=== PATIENT | female | born 1935 | race Caucasian/White ===

== ENCOUNTER → 2018-11-29 09:39 | Outpatient (CLI) | payer MEDICARE ==
[~2018-11-29 09:39] MED LIST: ALENDRONATE SOD40 MG PO; ECOTRIN325 MG PO; LIPITOR40 MG PO; LISINOPRIL-HCT1 EAC8 PO; LOPRESSOR25 MG PO; OMEPRAZOLE20 M1 PO
[2018-12-11 12:04] VITALS: BMI 23.8
== END | disposition home or self-care (01) ==
LOC: D.HCCARDIO 09:39
DX: R07.9 Chest pain, unspecified (principal); R06.00 Dyspnea, unspecified

== ENCOUNTER 2018-12-11 11:30 | Outpatient (CLI) | payer MEDICARE ==
[~2018-12-11] VITALS: Ht 157.5 cm; Wt 59.1 kg
--- NOTE | ~2018-12-11 | HEMODYNAMI ---
PATIENT:TYSON SAWYER MEDICAL RECORD: [id number] : 39 LOCATION:[facility] ADMISSION DATE: 12/11/18 Generatedon:12/11/201814:49 Patient name: TYSON SAWYER Patient #: [id number] SSN: : 1935 Date of study: 12/11/2018 Page: Of Hemodynamic Procedure Report Patient Data Patient Demographics Procedure consent was obtained First Name: TYSON Gender: Female Last Name: SILVERIO : 1935 [facility] Initial: ILEANA Age: 83 year(s) Patient #: [id number] Race: Unknown Additional ID: [id number] Contact details Address: [address] [place] [address] State: [place] City: [facility] Zip code: [address] Past Medical History Allergies: No known allergies Admission Admission Data Admission Date: 12/11/2018 Admission Time: 11:30 Admit Source: Other Height (in.): 63 BSA: 1.63 (m2) Height (cm.): 160.02 BMI: 23.56 (kg/m2) Weight (lbs.): 133 Weight (kg.): 60.33 Lab Results Lab Result Date: 12/11/2018 Lab Result Time: 12:00 Biochemistry Name Units Result Min Max BUN mg/dl 15 --(--*-)-- 7 18 Creatinine mg/dl 0.5 -*(----)-- 0.6 1.3 CBC Name Units Result Min Max Hematocrit % 36.3 *-(----)-- 42 54 Hemoglobin g/dl 12.4 *-(----)-- 13.5 17.5 Procedure Procedure Types Cath Procedure Diagnostic Procedure [facility] w/Coronaries Procedure Description Procedure Date Procedure Date: 12/11/2018 Procedure Start Time: 14:28 Procedure End Time: 14:44 Procedure Staff Name Function Dilshad Tomlinson MD Performing Physician Margaret Stephen RT Monitor Farhan Hanks RT Scrub Camron James RN Nurse Procedure Data Cath Procedure Fluoroscopy Diagnostic fluoroscopy Total fluoroscopy Time: 1.7 time: 1.7 min min Diagnostic fluoroscopy Total fluoroscopy dose: 299 dose: 299 mGy mGy Contrast Material Contrast Material Type Amount (ml) Isovue 300 55 Entry Location Entry Primary Successful Side Size Upsize Upsize Entry Closure Succes sful Closure Location (Fr) 1 (Fr) 2 (Fr) Remarks Device Remarks Femoral Right 5 Fr Exoseal artery Estimated blood loss: 10 ml Diagnostic catheters Device Type Used For End Catheter Placement MULTIPACK JL 4.0 5Fr Procedure catheter MULTIPACK 3DRC 5Fr Procedure catheter MULTIPACK Pigtail 5 Fr Procedure catheter Procedure Complications No complications Procedure Medications Medication Administration Route Dosage Oxygen etCO2 Nasal cannula 2 l/min Heparin Flush Bag added to field 2 bags (1000units/500ml NS) 0.9% NaCl I.V. 100 ml/hr Radial Cocktail added to field 1 syringe (Verapomil 2mg/Nitro 400mcg/Heparin 1500units) Lidocaine 2% added to field 20 Fentanyl I.V. 50 mcg Versed I.V. 1 mg Hemodynamics Rest BSA: 1.63 (m2) O2 Consumption: Estimated: 144.41 (ml/min) O2 Consumption indexed : Estimated:88.6 (ml/min/m) Heart Rate: 67 (bpm) Pressure Samples Time Site Value (mmHg) Purpose Heart Use Rate(bpm) 14:41 LV 161/4,8 EDP 67 14:42 LV 170/-14,7 EDP 68 Gradients Valve Time Site Site Mean SEP/DFP Peak To Heart Use 1 2 (mmHg) (sec/min) Peak Rate (mmHg) (bpm) Aortic 14:42 LV AO 66 Snapshots Pre Cath Intra NCS Post Cath Vital Signs Time Heart Resp SPO2 etCO2 NIBP (mmHg) Rhythm Pain Sedation Rate (ipm) (%) (mmHg) Status Level (bpm) 14:11:04 111 17 0 187/94(145) NSR 0 (11) 10(A) , No pain 14:15:24 64 16 99 34.3 192/92(153) NSR 0 (11) 10(A) , No pain 14:19:49 62 16 96 0 186/80(153) NSR 0 (11) 10(A) , No pain 14:24:13 69 16 97 26.8 163/77(149) NSR 0 (11) 10(A) , No pain 14:28:29 69 16 96 0 151/81(111) NSR 0 (11) 9(A) , No pain 14:32:43 66 17 97 11.9 158/75(131) NSR 0 (11) 9(A) , No pain 14:36:55 64 17 97 30.5 177/87(130) NSR 0 (11) 9(A) , No pain 14:41:13 77 16 95 23.8 161/87(109) NSR 0 (11) 9(A) , No pain 14:45:23 67 17 98 19.3 178/93(151) NSR 0 (11) 9(A) , No pain Medications Time Medication Route Dose Verified Delivered Reason Notes Ef fectiveness by by 14:12:55 Oxygen etCO2 2 l/min Dilshad Camron Per Nasal Davi James RN physician cannula 14:13:04 Heparin Flush added 2 bags Dilshad Camron used for Bag to Davi James merchandise shopper (1000units/500ml field NS) 14:13:11 0.9% NaCl I.V. 100 Dilshad Camron Per ml/hr Davi James RN physician 14:13:19 Radial Cocktail added 1 Dilshad Camron used for (Verapomil to syringe Davi James merchandise shopper 2mg/Nitro field 400mcg/Heparin 1500units) 14:13:28 Lidocaine 2% added 20ml Dilshad Camron used for to vial Davi James merchandise shopper field 14:28:49 Fentanyl I.V. 50 mcg Dilshad Camron for Davi James RN sedation 14:28:55 Versed I.V. 1 mg Dilshad Camron for Davi James RN sedation Procedure Log Time Note 13:44:56 Informed consent obtained and on chart 13:44:58 Admit Source: Other 13:45:12 Diagnostic Cath status Elective 13:45:15 Time tracking: Regular hours (M-F 7:00 - 5:00) 13:45:32 Plan of Care:Hemodynamics will remain stable., Cardiac rhythm will remain stable., Comfort level will be maintained., Respiratory function will remain adequate., Patient/ family verbilizes understanding of procedure., Procedure tolerated without complication., Recovers from procedure without complications.. 13:45:58 H&P Date Dictated: 11/23/2018 Within 30 days and on chart., H&P Addendum completed by physician on day of procedure. (MUST COMPLETE FOR ALL OUTPATIENTS). 13:46:47 Lab Result : BUN 15 mg/dl 13:46:47 Lab Result : Creatinine 0.5 mg/dl 13:46:47 Lab Result : Hematocrit 36.3 % 13:46:47 Lab Result : Hemoglobin 12.4 g/dl 13:46:49 Lab results completed and on chart. 13:49:05 Farhan Hanks RT(R) sent for patient. Start room use. 13:49:54 Patient Height : 63 inches 13:50:01 Patient Weight : 133 lbs 14:08:29 Patient received from Pre/Post Procedure Room to CCL 2 Alert and oriented. Tansferred to table in Supine position. 14:08:33 Warm blankets applied, and zoë hugger turned on for patient comfort. 14:08:34 Correct patient and procedure confirmed by team. 14:09:58 Vital chart was started 14:10:00 ECG and BP/O2 sat monitors applied to patient. 14:10:07 Rhythm: sinus rhythm 14:10:20 Pre-procedure instructions explained to patient. 14:10:21 Pre-op teaching completed and patient verbalized understanding. 14:10:37 Family in waiting room. 14:10:40 Patient NPO since Midnight. 14:10:48 Patient allergic to No known allergies 14:10:53 Is patient on blood thinner?No 14:10:55 Patient diabetic? No. 14:11:02 Patient not . Patient is over age 55. 14:11:05 ----Pre-sedation anethsthesia assessment.---- 14:11:08 Previous problem with sedation/anesthesia? No ? 14:11:10 Snore? Yes 14:11:13 Sleep apnea? No 14:11:16 Deviated septum? No 14:11:17 Opens mouth fully? Yes 14:11:19 Sticks out tongue? Yes 14:11:28 Airway obstruction? No ? 14:11:35 Dentures? Yes IN TIGHT 14:12:12 Modified Brandon's test Ulnar < 7 seconds 14:12:16 Patient pain scale 0/10 ?. 14:12:35 IV patent on arrival in left wrist with 0.9% NaCl at KVO. 14:12:42 Pre procedure: right dorsailis pedis pulse 2+ Normal; easily identifiable; not easily obliterated 14:12:55 Oxygen 2 l/min etCO2 Nasal cannula was administered by Camron James RN; Per physician; 14:12:55 Right Radial & Right Groin area was prepped with chlora-prep and draped in sterile fashion 14:12:57 Alarms reviewed by R. N. 14:12:57 Sharps counted by scrub and verified by R.N. 14:13:04 Heparin Flush Bag (1000units/500ml NS) 2 bags added to field was administered by Camron James RN; used for procedure; 14:13:11 0.9% NaCl 100 ml/hr I.V. was administered by Camron James RN; Per physician; 14:13:19 Radial Cocktail (Verapomil 2mg/Nitro 400mcg/Heparin 1500units) 1 syringe added to field was administered by Camron James RN; used for procedure; 14:13:28 Lidocaine 2% 20ml vial added to field was administered by Camron James RN; used for procedure; 14:24:32 Physician arrived 14:24:33 --------ALL STOP TIME OUT------ 14:24:34 Final Timeout: patient, procedure, and site verified with staff and physician. All members of the team are in agreement. 14:24:36 Right Radial & Right Groin site verified by team. 14:24:41 Fire Safety Assessment: A--An alcohol-based skin anteseptic being used preoperatively., C--Open oxygen or nitrous oxide is being used. 14:24:45 Physical assessment completed. ASA score P 2 - A patient with mild systemic disease as per Dilshad Tomlinson MD. 14:24:48 Sedation plan: IV Moderate Sedation Medication:Versed, Fentanyl 14:24:59 Use device set Radial Dx or PCI 14:25:00 ACIST Syringe (56542) opened to sterile field. 14:25:01 Medline Cath Pack ([id number]) opened to sterile field. 14:25:01 Bag Decanter (2002S) opened to sterile field. 14:25:02 DIAGNOSTIC WIRE .035 260cm J wire (973896) opened to sterile field. 14:25:03 ACIST Hand Control (84291) opened to sterile field. 14:25:04 ACIST Manifold (73855) opened to sterile field. 14:25:05 Tegaderm 4 x 4 (1626W) opened to sterile field. 14:25:06 MBrace Wrist Support ([id number]) opened to sterile field. 14:25:07 NEEDLE Cook 21G 4cm Radial (H08526) opened to sterile field. 14:25:44 Zero performed for pressure channel P1 14::06 Procedure started. 14:: Full Disclosure recording started 14:28:23 Local anesthetic to right radial artery with Lidocaine 2% by Dilshad Tomlinson MD.INITIAL ACCESS ONLY 14:28:49 Fentanyl 50 mcg I.V. was administered by Camron James RN; for sedation; 14:28:55 Versed 1 mg I.V. was administered by Camron James RN; for sedation; 14:32:39 Local anesthetic to right femoral artery with Lidocaine 2% by Dilshad Tomlinson MD.ADDITIONAL ACCESS 14:32:50 SHEATH 5FR Armstrong (VHJ893) opened to sterile field. 14:33:10 DIAGNOSTIC Multipack 5Fr catheter set (EL0148) opened to sterile field. 14:35:07 A 5 Fr sheath was inserted into the Right Femoral artery 14:35:25 A MULTIPACK JL 4.0 5Fr catheter was advanced over the wire and used for Procedure. 14:35:52 LCA angiography performed. 14:38:27 Catheter removed. 14:38:35 A MULTIPACK 3DRC 5Fr catheter was advanced over the wire and used for Procedure. 14:39:31 RCA angiography performed. 14:39:33 Catheter removed. 14:39:41 A MULTIPACK Pigtail 5 Fr catheter was advanced over the wire and used for Procedure. 14:40:04 LV angiography performed. 14:42:47 EF : 55 % 14:42:55 Catheter removed. 14:43:04 Sheath removed intact; hemostasis achieved with Exoseal to the Right Femoral artery. 14:43:20 Procedure ended.(Physican Out) 14:43:34 Fluoroscopy time 01.70 minutes. 14:43:46 Fluoroscopy dose: 299 mGy 14:43:46 Flurop Dose total: 299 14:43:50 Contrast amount:Isovue 300 55ml. 14:43:55 Sharps counted by scrub and verified by R.N. 14:43:57 Insertion/operative site no bleeding no hematoma. 14:44:01 Post right femoral artery:stable 14:44:02 Post Procedure Pulses reassessed and unchanged 14:44:05 Post-procedure physical assessment completed. ASA score P 2 - A patient with mild systemic disease as per Dilshad Tomlinson MD. 14:44:08 Post procedure rhythm: unchanged. 14:44:11 Estimated blood loss: 10 ml 14:44:12 Post procedure instruction explained to patient.Patient verbalizes understanding. 14:44:21 Procedure and supply charges have been captured, reviewed, submitted and are correct. 14:44:39 Procedure Complication : No complications 14:44:42 Vital chart was stopped 14:44:42 See physician's report for complete and final results. 14:44:44 Report given to Pre/Post Procedure Room. 14:44:48 Patient transfered to Pre/Post Procedure Room with Stretcher. 14:44:50 Procedure ended. 14:44:50 Full Disclosure recording stopped 14:44:53 End room use (Document Last) 14:44:53 End room use (Document Last) 14:44:53 End room use (Document Last) Device Usage Item Name Manufacture Quantity Catalog Hospital Part Current Minimal Lot# / Number Charge Number Stock Stock Serial# Code ACIST Acist 1 50458 001320 010314 465992 20 Syringe Medical (77883) Systems Inc Medline Medline 1 [id number] 819794 03534 109952 5 Cath Pack ([id number]) Bag Microtek 1 2001S 705449 44656 522486 5 Decanter Medical Inc. () DIAGNOSTIC [place] 1 342945 805019 836592 441166 30 WIRE .035 260cm J wire (190701) ACIST Hand Acist 1 95381 847597 726501 343011 5 Control Medical (07675) Systems Inc ACIST Acist 1 49983 843228 845126 540624 5 Manifold Medical (74976) Systems Inc Tegaderm 4 3M 1 1626W 538181 909497 808216 5 x 4 (1626W) MBrace Advanced 1 140-0250-00 743441 75379 238884 5 Wrist Vascular Support Dynamics ([id number]) NEEDLE [facility] 1 H76034 212574 304132 807567 5 21G 4cm Radial (W50892) SHEATH 5FR Terumo 1 NNS131 752897 524016 428361 5 Armstrong (MVC237) DIAGNOSTIC Cardinal 1 CK4111 735950 11229 874083 30 Multipack Health 5Fr catheter set (MW2992) MULTIPACK Cardinal 1 712438 5 JL 4.0 5Fr Health catheter MULTIPACK Cardinal 1 454446 5 3DRC 5Fr Health catheter MULTIPACK Cardinal 1 983176 5 Pigtail 5 Health Fr catheter Signature Audit Sheridan Stage Time Signature Unsigned Intra-Procedure 12/11/2018 Margaret Stephen 2:49:18 PM RT(R) Signatures Monitor : Margaret Stephen Signature : RT Date : Time : [place] [id number] [facility] [place] [address]
[2018-12-11] MEDS ORDERED: OMEPRAZOLE20 M1 PO (11:59)
[2018-12-11] MEDS ORDERED: LISINOPRIL-HCT1 EAC8 PO (11:59)
[2018-12-11] MEDS ORDERED: ECOTRIN325 MG PO (11:59)
[2018-12-11] MEDS ORDERED: LIPITOR40 MG PO (12:00)
[2018-12-11] MEDS ORDERED: ALENDRONATE SOD40 MG PO (12:00)
[2018-12-11 12:04] VITALS: BP 185/80; Ht 157.5 cm; Wt 59.1 kg
[2018-12-11 12:16] LABS: BASOPHILS 0.4 % (0-2); EOSINOPHILS 3.2 % (0-7); HEMATOCRIT 36.3 % (36.0-48.0); HEMOGLOBIN 12.4 g/dL (12-16); LYMPHOCYTES 31.2 % (15-50); MCH 31.2 pg (26.0-34.0); MCHC 34.2 g/dL (31.0-37.0); MCV 91.4 fL (80.0-100.0); MEAN PLATELET VOLUME 9.7 fL (7.4-10.4); MONOCYTES 9.5 % (2-11); NEUTROPHILS 55.7 % (40-80); PLATELET COUNT 221 10x3/uL (130-400); RBC 3.97 10x6/uL (4.00-5.40); RDW 13.1 % (11.5-14.5); WBC 4.9 10x3/uL (4.8-10.8)
[2018-12-11 12:36] LABS: CALC OSMOLALITY 281 mosm/kg (275-300); CALCIUM 9.8 mg/dL (8.5-10.1); CARBON DIOXIDE 24.6 mmol/L (21.0-32.0); CHLORIDE - SERUM 105 mmol/L (98-107); CREATININE - SERUM 0.5 mg/dL (0.6-1.3); GLUCOSE 92 mg/dL (74-106); SODIUM 141 mmol/L (136-145); UREA NITROGEN 15 mg/dL (7-18); eGFR NON AFRICAN AMERICAN > 90 mL/min (90-120)
[2018-12-11] MEDS ORDERED: LOPRESSOR25 MG PO (15:01)
--- NOTE | 2018-12-11 15:14 | NUR ---
RECEIVED PT FROM CAN CLOSING MACHINE TENDER, PT IS DROWSY, DENIES ANY C/O CHEST PAIN OR NAUSEA. REQUESTS WATER AND THIS IS SERVED. HOB FLAT, PT INSTRUCTED TO KEEP HEAD FLAT TO PILLOW AND RIGHT LEG STRAIGHT. VSS, DAUGHTER AT BEDSIDE. DR ELLIOTT HERE ROUNDING ON PT.
--- NOTE | 2018-12-11 15:26 | NUR ---
PT NICOLE PO FLUIDS WITH NO C/O NAUSEA. DRESSING IS CDI, PT IS ALERT AND DENIES ANY C/O. HOB IS FLAT, DAUGHTER AT BEDSIDE.
--- NOTE | 2018-12-11 16:04 | NUR ---
PT SLEEPING INTERMITTETLY, DRESSING TO RIGHT GROIN IS CDI, AERA IS SOFT. PEDAL PULSES 2+. HOB IS FLAT, VSS, CALL LIGHT IN REACH.
--- NOTE | 2018-12-11 16:29 | NUR ---
DRESSING REMAINS CDI, AREA IS SOFT AND NONTENDER. HOB ELEVATED 30 DEGREES, PT DENIES ANY C/O.
--- NOTE | 2018-12-11 16:40 | NUR ---
PT HAS VOIDED QS USING BEDPAN. HOB ELEVATED AND SANDWICH SERVED. PT IS ALERT AND DENIES ANY C/O. PEDAL PULSES PALPABLE.
--- NOTE | 2018-12-11 17:17 | NUR ---
PT HAS TOLERATED SANDWICH WITH NO C/O NAUSEA. DRESSING REMAINS CDI TO RIGHT GROIN, AREA IS SOFT AND NONTENDER. PEDAL PULSES PALPABLE. VSS. IV DC'D WITH CATH INTACT. DC INSTRUCTIONS REVIEWED WITH PT AND DAUGHTER WHO VERBALIZE UNDERSTANDING. PT DRESSING FOR DC WITH ASSIST.
--- NOTE | 2018-12-11 17:33 | NUR ---
PT HAS DRESSED FOR DC TO HOME. ASSISTED PT TO THE BATHROOM VIA WC AND PT VOIDED QS. DRESSING REMAINS CDI TO RIGHT GROIN. PT ESCORTED TO PRIVATE AUTO VIA WC BY NURSE WITH DAUGHTER DRIVING HER HOME. PT HAS ALL PERSONAL BELONGINGS AND DENIES ANY C/O UPON DC TO HOME.
== END 2018-12-11 17:30 | disposition home or self-care (01) ==
LOC: D.CATH 11:30
PROVIDERS: Internal Medicine Cardiovascular Disease
DX: R94.39 Abnormal result of other cardiovascular function study (principal)